=== PATIENT | female | born 1995 | race Caucasian/White ===

== ENCOUNTER 2022-04-25 08:41 | Outpatient (CLI) | payer BC, SELFPAY ==
[2022-04-25 10:09] LABS: Cholesterol* 197 mg/dL (90-199)
[2022-04-25 10:10] LABS: HDL Cholesterol* 59 mg/dL (>=50); LDL Cholesterol Calculated 125 mg/dL (<100); Triglycerides* 63 mg/dL (40-149)
== END 2022-04-25 08:42 | disposition home or self-care (01) ==
PROVIDERS: PCP Family Medicine; Visit Provider Physician Assistant
DX: Z01.419 Encounter for gynecological examination (general) (routine) without abnormal findings (principal); Z12.4 Encounter for screening for malignant neoplasm of cervix; Z11.3 Encounter for screening for infections with a predominantly sexual mode of transmission; Z13.6 Encounter for screening for cardiovascular disorders
CPT/HCPCS: 80061; 88174

== ENCOUNTER 2023-05-11 12:25 | Outpatient (CLI) | payer OTHER, SELFPAY | END 2023-05-11 12:26 | disposition home or self-care (01) | PROVIDERS: PCP Family Medicine; Visit Provider Physician Assistant | DX: R19.7 Diarrhea, unspecified (principal) | CPT/HCPCS: 87045; 87046; 87077; 87427; 87493; 87505 ==

== ENCOUNTER 2023-10-06 08:36 | Emergency (ER) | payer BC, SELFPAY ==
[2023-10-06 08:51] VITALS: BP 114/78; PULSE 101; RESP 16; TEMP 36.3; O2SAT 96; BMI 30.7
--- NOTE | 2023-10-06 08:59 | ED.NAVMDI ---
HPI - Nausea/Vomiting/Diarrhea General Time Seen by Provider: 08:59 Date Seen: 10/06/23 Chief complaint: Nausea/Vomiting Stated complaint: diarrhea,vomiting Time Seen by Provider: 10/06/23 08:45 Source: patient and RN notes reviewed Mode of arrival: ambulatory Limitations: no limitations History of Present Illness HPI Narrative: This 28-year-old female is coming in with nausea vomiting and diarrhea. She awoke abruptly at 4:00 a.m. and had sudden onset of symptoms. She really has not looked at the vomiting or diarrhea to see if there is any blood. She states she has just had continuous vomiting and diarrhea, can not really quantify how many times this is happen. She can not keep anything in, is already feeling dehydrated. She is not even sure if she has had a fever, she just feels miserable. She did have Campylobacter in summer of 2022 associated with travel to [place]. 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 The whole family did go out to eat [employer] night, no one else is sick. We did discuss the possibility that sometimes illness can be picked up off of surfaces and not just necessarily food-borne. She has no respiratory symptoms with this. Patient notes that she has been tapering off Lexapro, has been doing the recommended taper however. She did just bring that up wondering if it could be the causative etiology. Reviewed with her that I am doubtful that cessation of this medicine via a taper would cause such sudden on set of drastic symptoms. It is more likely an infectious source. MD elicited complaint: nausea, vomiting and diarrhea Related Data Home Medications Medication Instructions Recorded Confirmed cholecalciferol (vitamin D3) 25 1,000 unit PO DAILY 04/25/22 05/11/23 mcg (1,000 unit) tablet levonorgestrel 14 mcg/24 hrs (3 13.5 intrauterine ONCE 04/25/22 05/11/23 yrs) 13.5 mg intrauterine device spironolactone 50 mg tablet 50 mg PO DAILY 04/07/23 10/06/23 Previous Rx's Medication Instructions Recorded escitalopram oxalate 10 mg tablet 10 mg PO QDAY #90 tabs 04/07/23 escitalopram oxalate 5 mg tablet 5 mg PO QDAY #90 tabs 04/07/23 lorazepam 0.5 mg tablet 0.5 mg PO DAILY PRN anxiety #10 04/07/23 tabs ondansetron 4 mg disintegrating 4 mg PO Q6H PRN nausea and 10/06/23 tablet vomiting #20 tabs Allergies Allergy/AdvReac Type Severity Reaction Status Date / Time No Known Drug Allergies Allergy Verified 05/11/23 12:10 Review of Systems Status of ROS: Reports: 6 or more systems reviewed and unremarkable except as noted in History and below [facility] History Campylobacter diarrhea ?A04.5 - Campylobacter enteritis (ICD-10) Diarrhea ?R19.7 - Diarrhea, unspecified (ICD-10) JOVANNY (generalized anxiety disorder) ?F41.1 - Generalized anxiety disorder (ICD-10) Skin tag of anus ?K64.4 - Residual hemorrhoidal skin tags (ICD-10) Positive antinuclear antibody ?R76.8 - Other specified abnormal immunological findings in serum (ICD-10) Pityriasis rosea (10/24/21) ?L42 - Pityriasis rosea (ICD-10) Hidradenitis suppurativa ?L73.2 - Hidradenitis suppurativa (ICD-10) Attention deficit disorder of adult with hyperactivity ?F90.9 - Attention-deficit hyperactivity disorder, unspecified type (ICD-10) Anal fistula (11/2019) ?K60.3 - Anal fistula (ICD-10) Alopecia (2020) ?L65.9 - Nonscarring hair loss, unspecified (ICD-10) Allergic rhinitis ?J30.9 - Allergic rhinitis, unspecified (ICD-10) Surgical History Anal fissure and fistula ?K60.2 - Anal fissure, unspecified (ICD-10) ?K60.3 - Anal fistula (ICD-10) History of third molar tooth extraction (2013) ?K08.409 - Partial loss of teeth, unspecified cause, unspecified class (ICD-10) History of repair of fracture of facial bone (2011) ?Z98.890 - Other specified postprocedural states (ICD-10) ?Z87.81 - Personal history of (healed) traumatic fracture (ICD-10) Family History Maternal Grandmother Rheumatoid arthritis Paternal Grandmother Rheumatoid arthritis Family/Other Melanoma Autoimmune disorder 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 Exercises 4 times a week. Denies tobacco or E cigarette use. Two alcoholic drinks per week. Denies recreational drug use. No concerns for safety or abuse. Smoking Status: Never smoker How often do you have a drink containing alcohol: 2-3 times a week How many standard drinks containing alcohol do you have on a typical day: 1 or 2 How often do you have six or more drinks on one occasion: Never AUDIT-C Alcohol total score: 3 Non-prescribed substance use: denies use Little interest or pleasure in doing things: not at all Feeling down, depressed, or hopeless: not at all Exam Const: Vital Signs, click to edit/add: Vital Signs - 24 hr 10/06/23 08:51 10/06/23 09:20 10/06/23 10:29 Temperature 97.4 F L 97.1 F L Pulse Rate [Pulse Oximeter] 101 H 87 Respiratory Rate 16 16 Blood Pressure [Ri ght Upper Arm] 114/78 105/65 Pulse Oximetry 96 99 100 Oxygen Delivery Me thod Room Air Room Air This 28-year-old female is resting in exam room 3. She looks like she does not feel well but is alert, interactive, no apparent distress. Sclera clear, face atraumatic, tongue still has listening mucosa, no dry oral mucosa is membranes, lips look normal. Lungs are clear, no tachypnea. CV slightly fast but regular, no murmur, normal S1-S2, no S3-S4. Abdomen is soft, nontender, nondistended, no organomegaly, bowel sounds are present but maybe hypoactive. Documenting provider has reviewed patient's vital signs: yes Course Course ED Course: She very likely has a viral gastroenteritis. Will initiate an IV, start a L of IV fluids, 4 mg IV Zofran. We discussed expectations with viral gastroenteritis. We certainly can help with symptom management but cannot fix this. Will do a basic CBC electrolytes, make sure his she has no electrolyte abnormality or any labs or concerning. Would consider imaging if she has a change in clinical course here or there is anything significant with the labs. Otherwise probable discharge to home for ongoing outpatient observation, would send a prescription for Zofran for her. Reevaluation(s) Time of Reevaluation #1: 10:45 Reevaluation #1: Reviewed with patient that her labs are looking stable. She has completed a L of normal saline. Does feel like she could use another L, has not urinated. She does not have Zofran on hand. We discussed the assumption that this is a viral gastroenteritis. She certainly is not exhibiting any pain that would warrant any imaging. We discussed conservative management, will order 2 L of fluids here, discharged home after that. I will send in a prescription for Zofran. If she is not improving over the next couple days, has worsening or other concerns, would recommend re-evaluation at that point. Vital Signs Vital signs: Initial Vital Signs Temperature 97.4 F L 10/06/23 08:51 Temperature Source Temporal Artery Scan 10/06/23 08:51 Pulse Rate 101 H 10/06/23 08:51 Respiratory Rate 16 10/06/23 08:51 Blood Pressure 114/78 10/06/23 08:51 Blood Pressure Mean 90 10/06/23 08:51 Blood Pressure Position Supine 10/06/23 08:51 Pulse Oximetry 96 10/06/23 08:51 Oxygen Delivery Method Room Air 10/06/23 08:51 Vital Signs Temperature 97.4 F L 10/06/23 08:51 Pulse Rate 101 H 10/06/23 08:51 Respiratory Rate 16 10/06/23 08:51 Blood Pressure 114/78 10/06/23 08:51 Pulse Oximetry 96 10/06/23 08:51 Oxygen Delivery Method Room Air 10/06/23 08:51 Temperature 97.1 F L 10/06/23 10:29 Pulse Rate 87 10/06/23 10:29 Respiratory Rate 16 10/06/23 10:29 Blood Pressure 105/65 10/06/23 10:29 Pulse Oximetry 100 10/06/23 10:29 Oxygen Delivery Method Room Air 10/06/23 10:29 Medications Administered Medications: Generic Name Dose Route Start Last Admin Trade Name Freq PRN Reason Stop Dose Admin Lactated Ringer's 1,000 mls @ 1,000 mls/hr 10/06/23 10:46 10/06/23 10:53 Lactated Ringers 1000 Ml IV 10/06/23 11:45 1,000 mls/hr .Q1H ONE Administration Discontinued Medications Generic Name Dose Route Start Last Admin Trade Name Karelq PRN Reason Stop Dose Admin Sodium Chloride 1,000 mls @ 1,000 mls/hr 10/06/23 09:10 10/06/23 10:53 0.9 % Sodium Chloride 1000 Ml IV 10/06/23 10:09 Infused .Q1H LULU Infusion Ondansetron HCl 4 mg 10/06/23 09:10 10/06/23 09:30 Ondansetron 2 Mg/Ml Inj IVP 10/06/23 09:11 4 mg ONCE ONE Administration MDM - Nausea/Vomiting/Diarrhea Differential Diagnosis Differential diagnosis: Likely traveler's diarrhea, food poisoning, gastroenteritis and dehydration Lab Data Attestation: I reviewed the patient's lab results. Labs: Lab Results 10/06/23 Range/Units 09:26 WBC 11.29 H (4.50-11.00) K/uL RBC 4.59 (4.00-5.20) m/uL Hgb 13.8 (12.0-16.0) gm/dL Hct 41.9 (33.0-51.0) % MCV 91 (80-100) fL MCH 30 (26-34) pg MCHC 33 (32-36) gm/dL RDW Coeff of Samra 12.4 (11.5-15.5) % Plt Count 277 (140-440) K/uL Neut % (Auto) 92.8 H (42.0-72.0) % Lymph % (Auto) 3.1 L (20-44) % Grundy % (Auto) 3.9 (0.0-11.0) % Eos % (Auto) 0.1 (0.0-7.0) % Baso % (Auto) 0.0 (0.0-3.0) % Neut # (Auto) 10.50 H (1.7-7.0) K/uL Lymph # (Auto) 0.30 L (0.90-2.90) K/uL Grundy # (Auto) 0.40 (0.00-0.90) K/UL Eos # (Auto) 0.00 (0.00-0.50) K/uL Baso # (Auto) 0.00 (0.00-0.30) K/uL Abs Immat Gran (auto) 0.00 (0.00-0.30) K/uL Imm/Tot Granulo (auto) 0.1 % Sodium 140 (135-149) mmol/L Potassium 4.4 (3.6-5.1) mmol/L Chloride 105 (96-114) mmol/L Carbon Dioxide 23 (20-32) mmol/L Anion Gap 12 (7-15) mEq/L BUN 17 (5-24) mg/dL Creatinine 0.7 (0.5-1.5) mg/dL Estimated Creat Clear 114.01 Estimated GFR 122 ml/min Glucose 118 H (60-115) mg/dL Calcium 9.4 (8.4-10.6) mg/dL Discharge Plan Discharge Clinical Impression: Gastroenteritis and colitis, viral Patient Disposition: Home, Self-Care Condition: Stable Instructions: Gastroenteritis (ED), Nutrition Tips for Relief of Diarrhea (ED) Additional Instructions: Can use Zofran to help stop nausea/vomiting so that you can taken sips of liquids. Recommend small frequent sips of clear liquids every 5-10 minutes while awake to help keep hydrated and not overload your stomach. Follow the handout for nutrition recommendations with diarrhea. As your nausea improves, can advance diet with the help of this handout as tolerated. If you are not improving over the next few days, have worsening or concerns at any point, do recommend re-evaluation. I typically do not recommend antidiarrheals in the setting of an infectious diarrhea in the initial portion of the illness. Activity Level: Activity as Tolerated Prescriptions: New ondansetron 4 mg tablet,disintegrating 4 mg PO Q6H PRN (Reason: nausea and vomiting) Qty: 20 0RF No Action cholecalciferol (vitamin D3) 25 mcg (1,000 unit) tablet 1,000 unit PO DAILY levonorgestrel 14 mcg/24 hrs (3 yrs) 13.5 mg intrauterine device 13.5 intrauterine ONCE spironolactone 50 mg tablet 50 mg PO DAILY escitalopram oxalate 5 mg tablet 5 mg PO QDAY Qty: 90 1RF escitalopram oxalate 10 mg tablet 10 mg PO QDAY Qty: 90 1RF lorazepam 0.5 mg tablet 0.5 mg PO DAILY PRN (Reason: anxiety) Qty: 10 0RF Follow Up/Referrals: Yuniel Barbosa MD [Primary Care Provider] - Stand Alone Forms: MyHealth Info Instructions Critical Care Time Critical Care Time Critical Care Time: No
[2023-10-06 09:20] VITALS: O2SAT 99
[2023-10-06] MEDS: 0.9 % SODIUM CHLORIDE 1000 ml 1,000 ML IV (09:30)
[2023-10-06] MEDS: ONDANSETRON 2 MG/ML inj 4 MG IVP (09:30)
[2023-10-06 09:34] LABS: Eosinophils Percent Auto 0.1 % (0.0-7.0); Hematocrit 41.9 % (33.0-51.0); Hemoglobin* 13.8 gm/dL (12.0-16.0); Immature Granulocytes Pct Auto 0.1 %; Lymphocytes Percent Auto 3.1 % (20-44); Mean Corpuscular HGB Conc 33 gm/dL (32-36); Mean Corpuscular Hemoglobin 30 pg (26-34); Mean Corpuscular Volume 91 fL (80-100); Monocytes Percent Auto 3.9 % (0.0-11.0); Neutrophils Percent Auto 92.8 % (42.0-72.0); Platelet Count* 277 K/uL (140-440); RDW Coefficient of Variation % 12.4 % (11.5-15.5); Red Blood Count 4.59 m/uL (4.00-5.20); White Blood Count* 11.29 K/uL (4.50-11.00)
[2023-10-06 09:35] LABS: Slide Review Reflex No
[2023-10-06 09:46] LABS: Chloride* 105 mmol/L (96-114); Potassium* 4.4 mmol/L (3.6-5.1); Sodium* 140 mmol/L (135-149)
[2023-10-06 09:49] LABS: Anion Gap 12 mEq/L (7-15); Blood Urea Nitrogen* 17 mg/dL (5-24); Calcium* 9.4 mg/dL (8.4-10.6); Carbon Dioxide* 23 mmol/L (20-32); Creatinine* 0.7 mg/dL (0.5-1.5); Est. Creatinine Clearance* 114.01; Estimated Glomerular Filt Rate 122 ml/min; Glucose* 118 mg/dL (60-115)
[2023-10-06 10:29] VITALS: BP 105/65; PULSE 87; RESP 16; TEMP 36.2; O2SAT 100
[2023-10-06] MEDS: LACTATED RINGERS 1000 ML 1,000 ML IV (10:53)
== END 2023-10-06 11:32 | disposition home or self-care (01) ==
PROVIDERS: Emergency Provider Family Medicine; PCP Family Medicine
DX: A08.4 Viral intestinal infection, unspecified (principal)
CPT/HCPCS: 36415; 80048; 85025; 94761; 96361; 96374; 99284; J2405; J7030; J7120

== ENCOUNTER 2025-09-23 08:50 | Emergency (ER) | payer OTHER, SELFPAY ==
--- OUTSIDE RECORDS SUMMARY | 2025-09-23 08:54 | XMS_ITS | Clinical Summary ---
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 Phone [facility]- Primary Care Provider Allergies No known active allergies Medications MedicationSigDispense QuantityRefillsLast FilledStart DateEnd DateStatus spironolactone (ALDACTONE) 50 MG tablet Take 50 mg by mouth dailyActive Lisdexamfetamine Dimesylate 20 MG CHEW Take 20 mg by mouth daily VyvanaseActive Vitamin D3 (CHOLECALCIFEROL) 25 mcg (1000 units) tablet Take by mouth daily pls verify strength of pillActive ascorbic acid (VITAMIN C) 500 MG CPCR CR capsule Take 500 mg by mouth dailyActive zinc sulfate (ZINCATE) 220 (50 Zn) MG capsule Take 220 mg by mouth dailyActive levonorgestrel (CHAN) 13.5 MG IUD 1 each by Intrauterine route onceActive minoxidil (ROGAINE) 2 % external solution Apply topically dailyActive Active Problems ProblemNoted DateDiagnosed DateZygoma bkogajxk33/28/2012 Social History Tobacco UseTypesPacks/DayYears UsedDateSmoking Tobacco: NeverSmokeless Tobacco: NeverAlcohol UseStandard Drinks/WeekCommentsYes0 (1 standard drink = 0.6 oz pure alcohol)occasionallyAdolescent EducationAnswerDate RecordedGetting School Help NeededNot on file3CommentsNoSex and Gender InformationValueDate RecordedSex Assigned at BirthNot on fileLegal GktGzqxgg54/04/2012 5:18 AM [employer] Gender IdentityNot on fileSexual OrientationNot on file Last Filed Vital Signs Vital SignReadingTime TakenCommentsBlood Noclmmhg973/80112/04/2020 4:35 PM [employer] Hdqwy391610/03/2021 4:00 PM VMYAbultvdekua71.3 ??C (97.3 ??F)10/03/2021 3:04 PM CSTRespiratory Chtq075712/04/2020 4:35 PM CSTOxygen Newhcyhypz882%10/03/2021 4:35 PM CSTInhaled Oxygen Concentration--Qjqyhg22 kg (189 lb 8 oz)10/03/2021 11:22 AM PLJJmvptj219.6 cm (5' 6)10/03/2021 11:22 AM CSTBody Mass Index30.5910/03/2021 11:22 AM [employer] Plan of Treatment Not on file Medical Devices ImplantedTypeAreaManufacturerDevice IdentifierShelf Expiration DateModel / Serial / LotAlloderm Select 2x4cm Thick Implanted:Qty: 8 on 10/03/2021 [facility]: [id number] / / [id number] [place] [address] Care Teams Team MemberRelationshipSpecialtyStart Date [facility]- [address] [place] [address] PCP - Nutmbdu51/9/21
--- OUTSIDE RECORDS SUMMARY | 2025-09-23 08:54 | XMS_ITS | Data Portability ---
Author Organization [place] - [facility], Telehealth Address [address] [address] Assessment No assessment recorded. Plan of Treatment Reminders Order DateSubmit DateProviderLast Modified ByOrganization DetailsLast Modified TimeDetailsAppointmentsNone recorded.LabNone recorded.ReferralNone recorded. Proceduresintralesional injection (PROC)/[id number] [facility], [address] [facility] [facility], [place], [address], 33/ 11:22:50SurgeriesNone recorded.ImagingNone recorded.Medication Ordersdoxycycline hyclate 100 mg vzmedg06/ [facility][id number], [address], [facility] [address], [place], [id number], 28/ 12:39:21amoxicillin 875 mg tablet /[facility] [id number], [address] [place], [address], 06/09/2023 18:22:30 Patient TargetsNo targets recorded. Patient Instructions Encounter Date Encounter Id Patient Instructions Last Modified By Organization Details Last Modified Time 03/26/2023 [id number] Stop amoxicillin . Meds as directed. Tylenol every 6 hours, ibuprofen every 8 hours as needed for pain. Warm compresses to area. Do not pick, sqeeze lesions. Side effects of meds may include but not limited to GI upset, headache, rash, dizziness, increased sun sensitivity, worsening of condition, atrophy of skin/underlying adipose tissue, ineffectiveness. Seek medical attention for worsening, lack of improvement in 3-5 days or any other concerns [email or web address] Not available 03/26/2023 12:44:55 Reason for Referral None Reported. Medical Equipment None Reported. Allergies No known drug allergies Medications Name Sig Start Date Stop Date Status Note LastModified by Organization Details LastModified Time amoxicillin 875 mg tablet Take 1 tablet every 12 hours by oral route for 7 days. 03/23/2023 activeNot AvailableNot AvailableNot Availabledoxycycline hyclate 100 mg tablet Take 1 tablet twice a day by oral route for 10 days.03/26/2023ctiveNot AvailableNot AvailableNot AvailablespironolactoneactiveNot AvailableNot AvailableNot AvailableLexaproactiveNot AvailableNot AvailableNot Available Vitals Date Recorded Body height Body mass index (BMI) Body weight Heart rate Respiratory rate Oxygen saturation Body temperature Systolic And Diastolic Provider Name and Address Organization Details Last Updated DateTime 3 167.64 cm 30.7 kg/m2 84356.5 5 g 88 /min 16 /min 99 % 97 [degF] 116/65 mm[Hg] Pam Peña [facility] 18:14:41 Date Recorded Body height Body mass index (BMI) Body weight Body temperature Oxygen saturation Respiratory rate Heart rate Systolic And Diastolic Provider Name and Address Organization Details Last Updated DateTime 3 167.64 cm 30.7 kg/m2 83050.5 5 g 95.8 [degF] 98 % 16 /min 82 /min 110/65 mm[Hg] Pam Peña [facility] 3 12:16:23 Social History Question Answer Notes LastModified by Organization D etails LastModified Time Tobacco Smoking Status Never [facility]/23/2023 18:17:18What Is Your Level Of Caffeine Consumption?Zptklogerjdbe10Cwcykcpxqxk not apkbqkxwv82/12/2023 Sex: Unknown Functional Status Question Answer Note LastModified by Organization D etails LastModified Time Do you use any illicit or recreational drugs? No hrlws10Awymikhdbua not rsmjseyii98/12/2023o you or have you ever used any other forms of tobacco or nicotine?Kssrxhp22Gutanlaezvb not rzmpisnnz62/12/2023What is your level of alcohol consumption?Dwfzkhgfkvkwbky26Kunmtlbtghh not available 03/23/2023 Mental Status None recorded. Family History Nothing Reported. Medical History No medical history recorded. Gynecological HistoryNo gynecological history recorded. Obstetrics History GPAL:G 0 P 0 0 0 0 Past Encounters Encounter ID Performer Location Encounter Start Date Encounter Closed Date Diagnosis/Indication Diagnosis SNOMED-CT Code Diagnosis ICD10 Code Diagnosis IMO Codes Diagnosis Note [id number] ESTIVEN LAUGHLIN [facility] [address] [place] [id number] 03/23/2023 17:22:10 03/23/2023 18:23:47 Acute left otitis media 045185218 H66.92 Pt here with left AOM. Amoxicillin prescribed. Recommended tylenol/motrin for pain and follow up ifno improvement in 2 days.[id number] Smith [facility] [address] [address] 03/26/2023 11:25:42003/26/2023 12:34:51Infection of skin and/or subcutaneous bmbean17572082D47.9 Hidradenitis kjnmygdsnkg37542559S28.2 Health Concerns Section Related Observation LastModified by Organization Detai ls LastModified Time None Recorded Concern Status LastModified by Organization Details LastModified Time None Recorded Advance Directives Directive None Recorded Payers Insurance Date Sequence Insurance Name Policy Number Policy Waldron Covered Member ID Waldron Member ID Guarantor Name 03/23/2023 1 [facility] [id number] Viktoria Aragon [id number] [facility] [id number][id number] [id number] [facility]*SELF PAY*Viktoria Aragon Notes Date Note Type Note Provider Name and Address Orga nization Details Recorded Time 03/23/2023 text/html EaracheReported by PatientHPIFor context, patient reportsswimming/water in earbut reportsno sick contactsandno head trauma. For location, patient reportsleft. For severity, patient reportsmoderate. For modifying factors, patient reportsdoes not hurt to lie on, or pull on earanddoes not hurt to chew. For associated symptoms, patient reportsno hearing loss,no discharge from the ears,no nose/sinus problems,no popping noise in the ears,no ringing in the ears,no fever,ears do not feel full,no swelling,no redness,no itching (pruritus),no ear bleeding, andno vertigo(feels like water is in the ear). For duration, (started a few days ago and is getting worse).Pt notes she does get ear infections frequentlyROS as noted in the HPI JENA delaney, [facility]03/23/2023 18:25:0903/26/2023text/html Rash/Skin Lesion Urgent CareReported by PatientHPIFor quality, patient reports painful,red, andswollen. For context, patient reportsrecent outdoor activitybut reportsno new detergents or skin products,no one else with similar rash, andnot scratching(has hidradenitis suppurativa, flare with stress, change in diet, wearing wet bathing suits, friction to area.). For location, patient reports thighs (right proximal medial thigh). For severity, patient reportsworsening. For onset/timing, patient reportsabrupt onset. For duration, patient reports2 days. For aggravating factors, patient reportsnothing makes it worse. For associated symptoms, patient reportsno feverandno chills. For treatment history, (pt on spirololactone for treatment of the condition but not treatment of this flare).ROS as noted in the HPISYEDA Arana [address] [facility] [address] [place], [address], [facility]03/26/2023 13:27:40 OBGyn Episode No OBEpisode recorded.
--- OUTSIDE RECORDS SUMMARY | 2025-09-23 08:54 | XMS_ITS | Clinical Summary ---
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 Name Role Phone Yuniel Barbosa MD Primary Care Provider + Allergies No known active allergies Medications MedicationSigDispense QuantityRefillsLast FilledStart DateEnd DateStatus escitalopram oxalate (LEXAPRO) 5 MG tablet 3Active alprazolam (XANAX) 0.25 MG tablet ALPRAZOLAM 0.25 MG TABSActive cholecalciferol, vitamin D3, 25 mcg (1,000 unit) tablet Take by mouthActive hydrOXYzine (ATARAX) 25 MG tablet TAKE 1 TO 2 TABLETS BY MOUTH TWICE DAILY CIDXAS1904/29/2022ctive levonorgestreL (Bianka) 14 mcg/24 hrs (3 yrs) 13.5 mg IUD 1 each by intrauterine routeActive minoxidiL (ROGAINE) 2 % external solution Apply topicallyActive mupirocin (BACTROBAN) 2 % ointment 05/07/2020Active spironolactone (ALDACTONE) 50 MG tablet Take 1 tablet (50 mg total) by mouth01/30/2020Active tazarotene 0.1 % foam 03/01/2018Active triamcinolone (KENALOG) 0.1 % ointment APPLY A THIN LAYER TO LEFT BUTTOCK BID PRN03/08/2020Active zinc sulfate (ZINCATE) 50 mg zinc (220 mg) capsule Take 1 capsule (220 mg total) by mouthActive b complex vitamins tablet Take 1 tablet by mouth dailyActive cholecalciferol, vitamin D3, (cholecalciferol) 10 mcg (400 unit) tab Take by mouthActive Social History Tobacco UseTypesPacks/DayYears UsedDateSmoking Tobacco: NeverSmokeless Tobacco: Never Tobacco Cessation:Counseling Given: Yes CommentsNoSex and Gender InformationValueDate RecordedSex Assigned at BirthNot on fileLegal LhdDcatrx91/20/2023 10:50 AM ESTGender IdentityNot on file Sexual OrientationNot on file Last Filed Vital Signs Vital SignReadingTime TakenCommentsBlood Bnuhmdya666/70011/01/2022 12:05 PM EST Gtndy702611/01/2022 12:05 PM UXNKuvcesbfmyp59.9 ??C (98.5 ??F)11/01/2022 12:05 PM ESTRespiratory Ucbg121511/01/2022 12:05 PM ESTOxygen Qejrmxxydn08%11/01/2022 12:05 PM ESTInhaled Oxygen Concentration--Kjwfjc93.5 kg (195 lb)11/01/2022 12:05 PM DZSBolfyt350.6 cm (5' 6)11/01/2022 12:05 PM ESTBody Mass Index31.47011/01/2022 12:05 PM EST Plan of Treatment Health MaintenanceDue DateLast DoneCommentsDepression: Screening Annually using PHQ-2/9 in Adults 18 yrs or above (or HM Modifier)([facility])2015Hepatitis C Virus Infection in Adolescents and Adults: Screening (or Modifier) ([facility]) 2015SDOH Screening Reminder: Annually for all adults ([facility])2015 Tobacco Smoking Cessation: in Adults excluding Women: Behavioral and Pharmacotherapy Interventions ([facility])2015Cervical Cancer Screening: Pap every 3 yrs pts age 21-65002/13/2018Cervical Cancer: hrHPV alone or with cotesting Pap for Pts 30-65yrs screening every 5yrs ([facility])2018Cervical Cancer Screenin-65 yrs of age (or Modifier)04/26/2022ervical Cancer: Pap Screening with Modifier timing ([facility])Flu Vaccination: Yearly for ages 18mos through 64 years (or Modifier)([facility])5COVID-19 Vaccine Screening: Initial Series and Booster Status ([facility]) ( - 2024-26 season) 2025DTaP/Tdap/Td Vaccines ([facility]) (3 - Td or Tdap), 06/06/2002Zoster/Shingles Vaccine Series Screening: Adults aged 18+ yrs (or HM Modifiers)([facility]) (1 of 2)Pneumococcal Vaccination Screening: Pts 0-19 & 19-49 yrs of age ([facility])Aged OutNo longer eligible based on patient's age to complete this topic Medical Devices Not on file Care Teams Team MemberRelationshipSpecialtyStart DateEnd Date Yuniel Barbosa MD PCP - GeneralFamily Medicine11/01/22
--- OUTSIDE RECORDS SUMMARY | 2025-09-23 08:54 | XMS_ITS | CCD ---
Author Name Interface, [id number] lity Address [address] [place] [id number] [facility] Address [facility] [address] [address] Reason for Visit Social History Date Name Value 06/10/2025 Sex Female
--- OUTSIDE RECORDS SUMMARY | 2025-09-23 08:54 | XMS_ITS | Data Portability ---
Author Organization [place] - .[facility], [facility] Address [address] [place] [address] Assessment No assessment recorded. Plan of Treatment Reminders Order DateSubmit DateProviderLast Modified ByOrganization DetailsLast Modified TimeDetailsAppointmentsNone recorded.Labrapid SARS CoV 2 Ag, QL IA, respiratory fbzvprha63/wang46[facility]_ [facility], [place], [address], 07/09/2022 14:08:59rapid flu (A+B)02/17/2022 02/17/2022tshelley7[facility]_ [facility], [address] [place], [address], 75 15:34:17rapid SARS CoV 2 Ag, QL IA, respiratory plotlkyl10/06/2022tshelley7[facility]_ [facility], [address] [place], [address], 53 15:34:17SARS CoV 2 RNA (COVID-19), QL, line tender flakeboard-PCR, respiratory struhpgk44/06/20221762ejggjger7[facility], [address] [place] [address], [address], 35/08/2022 15:34:17ReferralNone recorded.ProceduresNone recorded.SurgeriesNone recorded.ImagingNone recorded. Medication OrdersVentolin HFA 90 mcg/actuation aerosol spqpetk3502/20/2022 02/20/2022[id number], [address] [place], [address], 96/ 03:30:55prednisone 10 mg odrwvi36 [id number], [address] [place], [address], 88/08/2022 09:44:13Augmentin 875 mg-125 mg urpthl29 [id number], [address] [place], [address], 95/08/2022 09:44:15 Patient TargetsNo targets recorded. Patient Instructions Encounter Date Encounter Id Patient Instructions Last Modified By Organization Details Last Modified Time 02/17/2022 [id number] A healthy lifestyle: care instructions [email or web address] Not available 02/19/2022 15:34:17 Thank you for visiting [employer]. There are two ways to view your lab results: : 1. The [email or web address] alexia is available to all patients 18 and older in the Alexia Store and [employer]. First-time alexia users will need to create an account; please note you???ll need to select a login and password for the alexia versus just using your patient portal login credentials. Your lab resultswill be posted to the [email or web address] alexia as soon as they???re available. 2. Via email , as soon as lab results are available. If you don???t receive an email within the estimated time frame, give our Aftercare team a call at [phone]. Test Name: SARS-CoV-2 rapid ag (COVID-19); Result: NEGATIVE Your test today for COVID-19 infection was NEGATIVE. The next steps in your care depend on your whether you are having symptoms or had an exposure to Covid-19: NOTE: an EXPOSURE is defined as spending more than 10 minutes (within a 24 period) within an enclosed space with an individual who tested positive for Covid-19 If NO EXPOSURE to COVID-19: If you are ASYMPTOMATIC and NO KNOWN EXPOSURE: You are cleared to go back to work or school since you have no symptoms suggestive of COVID-19, have not had a high risk exposure to a person known to have COVID-19, and your Rapid Covid Test result is negative. If you have SYMPTOMS with NO KNOWN EXPOSURE to COVID-19: Your medical provider may have sent a second test to an outside lab to confirm that today s test was truly negative. The results of this second test (PCR technique) will be published to your [facility] patient portal ([email or web address]) as soon as they are available (3- 5 days on average). For now, we ask that you go homeunder strict QUARANTINE, monitor for any worsening symptoms and return for re-evaluation if your symptoms become severe. If HIGH-RISK EXPOSURE: FULLY VACCINATED: If you are fully vaccinated and boosted (with the booster at least 2 weeks before the first date of exposure) or you are not yet eligiblefor a booster, NO QUARANTINE IS REQUIRED. You should wear a well-fitting mask while aroundothers for 10 days after the last date of exposure. NOT FULLY VACCINATED (including vaccinated and eligible for a booster but not yet boosted): You should QUARANTINE for 5 DAYS, then wear a well-fitting mask while around others for an additional 5 days. It is recommended that you TEST at DAY 5 if possible (either PCR or Rapid Antigen) If you DEVELOP SYMPTOMS: QUARANTINE and SEEK TESTING. In this situation, quarantine would end when the test is negative. If testing is not done, isolate according to the guidance above (Vaccinated vs NOT-Vaccinated). Be Safe MONITOR YOUR SYMPTOMS : If at any point your symptoms become worse or severe such as fever that will not improve with medicine, shortness of breath, chest pain or discomfort, abdominal pain, inability to tolerate eating and drinking, please returnto [facility] or go to the closest Emergency Room. QUARANTINE INFO : If you were asked to quarantine yourself, please stay in your own part of the house away from everyone else, using your own bedroom and bathroom, if possible. If you need to be in a common area ensure that both you and anyone else around you is wearing a mask.You will be considered free of contagious COVID-19 10 days after your symptoms began ??? if your symptoms have significantly improved and you have not had a fever for at least 24 hours (without using fever reducing medications like acetaminophen or ibuprofen). Please continue to follow all personal safety practices when outside the home, including (a) wearing a nose and mouth covering at all times when around people outside of your household, (b) social distancing, (c) hand hygiene, and (d) avoidance of contact with people with known or possible COVID-19.xzrevz5Vux znfeaccmj63/09/2022 14:15:45 [id number] healthy lifestyle: care lwaeoqnnakqwwltvo67Tkf available 02/20/2022 14:08:59Thank you for visiting [facility]. There are two ways to view your lab results: : 1. The [email or web address] alexia is available to all patients 18 and older in the Alexia Store and [employer]. First-time alexia users will need to create an account; please note you???ll need to select a login and password for the alexia versus just using your patient portal login credentials. Your lab resultswill be posted to the [email or web address] alexia as soon as they???re available. 2. Via email , as soon as lab results are available. If you don???t receive an email within the estimated time frame, give our Aftercare team a call at [phone]. Test Name: SARS-CoV-2 rapid ag (COVID-19); Result: POSITIVE ISOLATE for 5 days from the onset of symptom. (If you are asymptomatic, you shouldIsolate for 5 days from the day of the positive test result.) AFTER 5 days, if your respiratory symptoms (ie. cough, runny nose, etc) are improving AND you are fever-free for 24 hours (without using fever reducing medications like acetaminophen or ibuprofen), isolation ends and you should wear a well fitting mask while around others for an additional 5 days . If you are UNABLE TO WEAR a well-fitting mask for 5 days: you should continue ISOLATION for 5 more days (total = 10 days isolation) If you are IMMUNOCOMPROMISED (moderately to severely): you should continue ISOLATION for 5 more days (total = 10 days isolation) HEALTHCARE WORKERS: Vaccinated Healthcare Workers who test POSITIVE for COVID-19 may return to work 5 days after onset of symptoms (Asymptomatic HC workers with a positive testmay use 5 days from date of test) provided their symptoms are improving and they???re fever free for >24 hours. Consult your employer s EHS team. Unvaccinated Healthcare Workers who test POSITIVE for COVID-19 may return to work 7 days after onset of symptoms (Asymptomatic HC workers with a positive test may use 7 days from date of test) provided their symptoms are improving and they re fever free for >24 hours. Consult your employer [facility] team Consult your employer???s EHS team: Your health care institution may vary on quarantine requirements; they may also require testing prior to your returning to work. Be Safe MONITOR YOUR SYMPTOMS: If at any point your symptoms become worse or severe such as fever that will not improve withmedicine, shortness of breath, chest pain or discomfort, abdominal pain, inability to tolerate eating and drinking, please return to [facility] or go to the closest Emergency Room. QUARANTINE INFO: If you were asked to quarantine yourself, please stay in your own part of the house away from everyone else, using your own bedroom and bathroom, if possible. If you need to be in a common area ensure that both you and anyone else around you is wearing a mask.You will be consideredfree of contagious COVID-19 10 days after your symptoms began ??? if your symptoms have significantly improved and you have not had a fever for at least 24 hours (without using fever reducing medications like acetaminophen or ibuprofen). REPEAT TESTING: It is generally NOT required (or even recommended) to get repeat testing for COVID-19 until at least 90 days after receiving a positive test result. (Consult your employer/school for their specific requirements). If you are age 18 to 65 and have recently tested positive for SARS-CoV-19, you can help in the fight against COVID-19! Antibodies from your blood can be given to patientswith COVID-19 to help save lives. Sign up using the link below. If you are eligible, a member of our team will contact you to schedule an appointment. Donors are compensated at each donation! Please visit [employer] and complete the screening form to see if you are eligible for donation Please continue to follow all personal safety practices when outside the home, including (a) wearing a nose and mouth covering at all times when around people outside of your household, (b) social distancing, (c) hand hygiene, and (d) avoidance of contact with people with known or possible COVID-19. Cough Your Care Instructions: A cough is your body's response to something that bothers your throat or airways. Many things can cause a cough. You might cough because of a cold or the flu, bronchitis, or asthma. Smoking, postnasal drip, allergies, and stomach acid that backs up into your throat also can cause coughs. A cough is a symptom, not a disease. Most coughs stop when the cause, such as a cold, goes away. You can take a few steps at home to cough less and feel better. Follow-up care is a danielson part of your treatment and safety. Be sure to make and go to all appointments, and call your doctor if you are having problems. It's also a good idea to know your test resultsand keep a list of the medicines you take. How can you care for yourself at home? Drink lots of water and other fluids. This helps thin the mucus and soothes a dry or sore throat. Honey or lemon juice in hot water or tea may ease a dry cough. Take cough medicine as directed by your doctor. Prop up your head on pillows to help you breathe and ease a dry cough. Try cough drops to soothe a dry or sore throat. Cough drops don't stop a cough. Medicine-flavored cough drops are no better than candy-flavored drops or hard candy. Do not smoke. Avoid secondhand smoke. If you need help quitting, talk to your doctor about stop-smoking programs and medicines. These can increase your chances of quitting for good. When should you call for help? Call 911 anytime you think you may need emergency care. For example, call if: You have severe trouble breathing. Call your doctor now or seek immediate medical care if: You cough up blood. You have new or worse trouble breathing. You have a new or higher fever. You have a new rash. Watch closely for changes in your health, and be sure to contact your doctor if: You cough more deeply or more often, especially if you notice more mucus or a change in the color of your mucus. You have new symptoms, such as a sore throat, an earache, or sinus pain. You do not get better as expected. Otitis Media (adult) Your Care Instructions: An ear infection may start with a cold and affect the middle ear (otitis media). It can hurt a lot.Most ear infections clear up on their own in a couple of days. Most often you will not need antibiotics. This is because many ear infections are caused by a virus. Antibiotics don''t work against a virus. Regular doses of pain medicines are the best way to reduce your fever and help you feel better. Follow-up care is a danielson part of your treatment and safety. Be sure to make and go to all appointments, and call your doctor if you are having problems. It''s also a good idea to know your test results and keep a list of the medicines you take. How can you care for yourself at home? Take pain medicines exactly as directed. If the doctor gave you a prescription medicine for pain, take it as prescribed. If you are not taking a prescription pain medicine, take an olgv-jbh-eurcjli medicine, such as acetaminophen (Tylenol), ibuprofen (Advil, Motrin), or naproxen (Aleve). Read and follow all instructions on the label. Do not take two or more pain medicines at the same time unless the doctor told you to. Many pain medicines have acetaminophen, which is Tylenol. Too much acetaminophen (Tylenol) can be harmful. Plan to take a full dose of pain reliever before bedtime. Getting enough sleep will help you get better. Try a warm, moist washcloth on the ear. It may help relieve pain. If your doctor prescribed antibiotics, take them as directed. Do not stop taking them just because you feel better. You need to take the full course of antibiotics. When should you call for help? Call your doctor now or seek immediate medical care if: You have new or increasing ear pain. You have new or increasing pus or blood draining from your ear. You have a fever with a stiff neck or a severe headache. Watch closely for changes in your health, and be sure to contact your doctor if: You have new or worse symptoms. You are not getting better after taking an antibiotic for 2 days. leyplgp5Ecf /12/2022 12:00:41 Reason for Referral None Reported. Results Created Date Observation Date Name Description Value Unit Range Abnormal Flag Note LastModifiedBy Organization Detail LastModifiedTime 02/17/2022 02/18/2022 SARS COV 2 RT-PCR sars-cov-2 RNA (co vid19) by PCR POSITIVE negativeabnormalPositive results are indicative of the presence of SARS-CoV-2 RNA; clinical correlation with patient history and other diagnostic information is necessary to determine patient infection status. Positive results do not rule out bacterial infection or co-infection with other viruses. Positive and nega tive predictive values of testing are highly dependent on prevalence. False positive test results are more likely when prevalence is moderate to low. The expected result is Negative (Not Detected). The SARS CoV-2 test is intended for the qualitative detection of nucleic acid from SARS-CoV-2 in nasopharyngeal and oropharyngeal swab samples from patients who meet COVID-19 clinical and/or epidemiological criteria. Testing methodology is Real-Time PCR (RT-PCR) using high- throughput technology. Test results must be correlated with clinical presentation and evaluated in the context of other laboratory and epidemiologic data. This test has not been Food and Drug Administration (FDA) cleared or alexia roved and has been authorized by FDA under an Emergency Use Authorization (EUA). [facility] is certified under the Clinical Laboratory Improvement Amendments of 1988 (CLIA),42 U.S.C. section 263a, to perform high complexity tests.Not Available[facility] [address] [place], [address], 002/18/2022 07:43:46 apid flu (A+B)Flu A (control pos)NEGATIVENot Available [facility] [address] [place] [address], [address], 02/17/2022 14:04:21 /2rapid flu (A+B)Flu B (control pos)NEGATIVENot Available [facility] [address] [place] [address], [address], 02/17/2022 14:04:21 2rapid SARS CoV 2 Ag, QL IA, respiratory specimenRapid COVID- 19 Antigen (Internal Control Positive)NegativeNot AvailableCmdny_ [facility] [address] [place] [address], [address], 02/17/2022 13:41:04 /apid SARS CoV 2 Ag, QL IA, respiratory specimenRapid COVID- 19 Antigen (Internal Control Positive)PositiveNot AvailableNorthern [facility] [address] [place], [address], 05/09/2022 11:38:49 Result Notes None recorded. Problems Name Problem SNOMED Code Status Onset Date Resolution Date Notes Provider Name and Address Organization Details Recorded Time Irritable bowel syndrome 90674632 Active 02/17/2022 ARIEL Lim - .[facility]02/17/2022 13:31:27Hidradenitis [id number] Odoenm5702/17/2022ARIEL Austin - .[facility]02/17/2022 13:34:39 Problem Notes None recorded. Medical Equipment None Reported. Allergies No known drug allergies Medications Name Sig Start Date Stop Date Status Note LastModified by Organization Details LastModified Time Augmentin 875 mg-125 mg tablet Take 1 ta blet twice a day by oral route for 10 days. 02/20/2022 activeNot AvailableNot AvailableNot Availableprednisone 10 mg tabletTake 1 tablet every day by oral route for 5 days.02/20/2022ctiveNot AvailableNot AvailableNot AvailableVentolin HFA 90 mcg/actuation aerosol inhalerInhale 2 puffs every 4 hours by inhalation route.02/20/2022ctiveNot AvailableNot AvailableNot AvailablespironolactoneactiveNot AvailableNot AvailableNot Available Vitals Date Recorded Body height Body mass index (BMI) Body weight Heart rate Body temperature Respiratory rate Oxygen saturation Systolic And Diastolic Provider Name and Address Organization Details Last Updated DateTime 167.64 cm 30.7 kg/m2 48982.4 8 g 88 /min 97.8 [degF] 16 /min 99 % 106/72 mm[Hg] Reena Anjel GEORGE - .[facility] 05/09/202 2 13:19:42 Date Recorded Body height Body mass index (BMI) Body weight Respiratory rate Oxygen saturation Body temperature Heart rate Systolic And Diastolic Provider Name and Address Organization Details Last Updated DateTime 167.64 cm 30.5 kg/m2 67976.9 6 g 16 /min 99 % 99.3 [degF] 125 /min 108/77 mm[Hg] Doris GEORGE - .[facility] 11:43:16 Social History Question Answer Notes LastModified by Organization D etails LastModified Time Tobacco Smoking Status Never Smoker Osmanimary SanchezMu-IsmARIEL rangel - .[facility]02/17/2022 13:32:05RISK LEVEL - SegmentationLevel 0 - Unknown/Insufficient Recent DataAPI-1111Information not dujdbggio23/17/2023 Sex: Unknown Functional Status None recorded. Mental Status None recorded. Family History Relationship Description Onset Age of this Age Resolved Age Notes LastModified by Organization Details LastModified Time Father No current problems or disabilit y gmlzdl3Vft qqdhsiviu54/09/2022 13:32:06MotherNo current problems or disability rzrszo7Gmu cntmgsfof15/09/2022 13:32:06 Medical History No medical history recorded. Gynecological HistoryNo gynecological history recorded. Obstetrics History GPAL:G 0 P 0 0 0 0 Past Encounters Encounter ID Performer Location Encounter Start Date Encounter Closed Date Diagnosis/Indication Diagnosis SNOMED-CT Code Diagnosis ICD10 Code Diagnosis IMO Codes Diagnosis Note [id number] Daniela LANDA [facility] [address] [place] [address] 02/17/2022 12:53:25 02/17/2022 14:16:04 Exposure to SARS-CoV-2 279617192 Z20.822 Viral ulldpcxx618393321O38.9 [id number] FISHER_ [facility] [address] [place] [address] 02/20/2022 11:24:39002/20/2022 12:00:05Exposure to DZUG-KqR-3877432458V61.822 History of IPBK-CqM-[id number] COVID-31875544954X11.1 Otitis texzk72991237A37.93 Fyash13243037V97.9 Health Concerns Section Related Observation LastModified by Organization Detai ls LastModified Time None Recorded Concern Status LastModified by Organization Details LastModified Time None Recorded Advance Directives Directive None Recorded Payers Insurance Date Sequence Insurance Name Policy Number Policy Waldron Covered Member ID Waldron Member ID Guarantor Name 07/08/2024 1 JOHN [place] ([facility]) [id number] Raffy Aragon [facility] [id number] Viktoria Aragon Notes Date Note Type Note Provider Name and Address Orgrobert linda Details Recorded Time 02/17/2022 text/html COVID-19 VISIT - cmdReported by PatientHPIFor patient presents for, patient reportscovid-19 visit. For pertinent findings, patient reports(+) body aches,(+) sore throat, and(+) coughbut reportsno fever,no nasal symptoms,no cp,no leg swelling,no neurologic deficits, andno sob. For covid vaccination status, patient reports(+) covid vaccination pfizer and has been > 2 weeks since the final scheduled doseandreceived booster moderna.27 y/o F with pmh: IBS and hidradenitis suppurativa reports she tested positive for covid on an at home test todayPt has sore throat, cough, headache, malaise and body aches since yesterdayPt is fully vaccinated for covid OTC: Ibuprofen with mild reliefTara ARIEL Romo - .[facility]02/17/2022 15:43:text/htmlCOVID-19 VISIT - cmdReported by PatientHPIFor patient presents for, patient reportscovid-19 visit. For pertinent findings, patient reports(+) nasal discharge/congestionand (+) coughbut reportsno fever,no body aches,no sore throat,no cp,no leg swelling, no neurologic deficits, andno sob((+) sinus pain (+) green mucus (+) ear pain). For covid vaccination status, patient reports(+) covid vaccination pfizer and has been > 2 weeks since the final scheduled doseandreceived booster moderna.Pt presents for RAPID testing. Pt reports she tested positive 4 days ago on a rapid and pcr test. pt is still experiencing sxs. Pt took OTC mucinex for relief. Shant Mayo [address], [place], [address], [facility] - .[facility]02/20/2022 23:03:24 OBGyn Episode No OBEpisode recorded.
--- OUTSIDE RECORDS SUMMARY | 2025-09-23 08:54 | XMS_ITS | Clinical Summary ---
Author Organization [employer] [facility] Address [address] [place] [id number] Care Team Providers Care Test Development Engineer Name Role Phone Tomeka Byrd MD Primary Care Provider [phone] Allergies No known active allergies Medications MedicationSigDispense QuantityRefillsLast FilledStart DateEnd DateStatus drospirenone-ethinyl estradiol (VESTURA, 28,) 3-0.02 mg tablet Take 1 tablet by mouth once daily. 1 Package ctive Family History Medical HistoryRelationNameCommentsArthritisMaternal GrandmotherRAArthritis Paternal GrandmotherRARelationNameStatusCommentsMaternal GrandmotherPaternal Grandmother Social History Tobacco UseTypesPacks/DayYears UsedDateSmoking Tobacco: NeverAlcohol UseStandard Drinks/WeekCommentsNo0 (1 standard drink = 0.6 oz pure alcohol)Comments UnknownSex and Gender InformationValueDate RecordedSex Assigned at BirthNot on fileLegal PbmQnjski88/14/2013 5:42 AM CSTGender IdentityNot on fileSexual OrientationNot on file Last Filed Vital Signs Vital SignReadingTime TakenCommentsBlood Zastasap079/7209/26/2014 3:07 PM CHICKEN VACCINATOR Ueluw629809/26/2014 3:07 PM DHUVfhxzpsfkfw31.4 ??C (97.5 ??F)06/09/2009 10:37 AM CDTRespiratory Rate--Oxygen Saturation--Inhaled Oxygen Concentration--Hfiaak73.3 kg (166 lb)09/26/2014 3:07 PM CSTHeight--Body Mass Index-- Plan of Treatment Health MaintenanceDue DateLast DoneCommentsTetanus gfoltoo4102/14/2008Depression screening for age 12+2009HIV for age 15-MI (ht and wt on same day) for age 18+2015Hepatitis C screening for age 18-7902/13/2015Hepatitis B series for 19+ (1 of 3 - 19+ 3-dose series)02/14/2016HPV series for age 9-45 (1 - 3-dose SCDM series)02/14/2024ap test for age 21- COVID-19 vaccine series ( - 2024- season)2025Influenza Vaccine (#1) 2025Pneumococcal series for age 6-49Aged OutNo longer eligible based on patient's age to complete this topic Procedures Procedure NamePriorityDate/TimeAssociated DiagnosisCommentsGYN THIN PREP PAP SCREEN ISCSJYQtluraa47/15/2022 8:30 AM CDT from Last 3 Months or Most Recently Relevant to Health Maintenance Results * PROVIDER NETWORK ANALYST THIN PREP PAP SCREEN IMAGED (04/25/2022 8:30 AM CDT)ComponentValueRef RangeTest MethodAnalysis TimePerformed AtPathologist SignatureCase Report Gynecologic Cytology Report ? Case: [id number] ? Authorizing Provider: ??Nicky Restrepo PA-C ?Collected: ? 04/25/2022 0830 ? Ordering Location: ? [facility] ?Received: ?04/28/2022 1312 ? First Screen: ?BacRichard melendez ? Specimen: ?PROVIDER NETWORK ANALYST ThinPrep Vial Screening, Cervical/Vaginal ? 05/12/2022 1:49 PM [facility] INTERPRETATION/RESULTNEGATIVE FOR INTRAEPITHELIAL LESION OR MALIGNANCY (NIL) (none)05/12/2022 1:49 PM [facility] at 1349 CDTSPECIMEN ADEQUACY Satisfactory for evaluation No endocervical component seen05/12/2022 1:49 PM [facility] C[facility]TRAL LABORATORYHPV REQUESTHPV if ASCUS05/12/2022 1:49 PM [facility] LABORATORYLast Pap Date05/12/2022 1:49 PM [facility]-CENTRAL LABORATORYComment:2019Last Pap RdeimrOUJ91/01/2022 1:49 PM [facility] LABORATORYAbnormal Pap or Tranquillity Bx in last 5 jjhpyXq8905/12/2022 1:49 PM [facility] Menstrual StatusHormonally Tstoevjsgn57/01/2022 1:49 PM [facility]AL LABORATORYColp Bx Done WmcicBo0605/12/2022 1:49 PM [facility]Additional Baewacsxqok21/01/2022 1:49 PM CDT [facility]-CENTRAL LABORATORYComment: Interpreted at [facility] - [address], [place] [address] Automated NqlxahVyniyjptxp99/01/2022 1:49 PM [facility]-CENTRAL LABORATORYComment:Specimen processed successfully by automated hardboard grinder device, ThinPrep Imaging System, [employer]NoteThe pap test is a screening technique, not a diagnostic procedure. It is used primarily to screen for squamous cancers and precursor lesions. Published studies have shown that it is subject to both false negative and false positive results. The pap test should not be used as the sole means to diagnose or exclude pre-malignant and malignant lesions. 05/12/2022 1:49 PM [facility]-CENTRAL LABORATORYSpecimen (Source)Anatomical Location / LateralityCollection Method / VolumeCollection TimeReceived TimeOther (Cervical/Vaginal)04/25/2022 8:30 AM CDT04/28/2022 1:12 PM CDT Narrative Authorizing ProviderResult TypeResult StatusApril Juan Restrepo PA-C PATHOLOGY/CYTOLOGYFinal ResultPerforming OrganizationAddressCity/State/ZIP Code Phone Number [facility] [address] [employer] [place] [address], from Last 3 Months or Most Recently Relevant to Health Maintenance Insurance Care Teams Team MemberRelationshipSpecialtyStart DateEnd Tomeka Byrd MD [address] [place] [address] PCP - GeneralObstetrics and Jweclbnsna68/3/14
[2025-09-23 08:55] VITALS: BP 137/90; PULSE 91; RESP 18; TEMP 36.1; O2SAT 100
--- NOTE | 2025-09-23 09:13 | ED_ITS ---
HPI - General Adult General Chief complaint: Anxiety Stated complaint: panic attack Time Seen by Provider: 09/23/25 09:13 History of Present Illness HPI narrative: Patient presents to the emergency department complaining of increased anxiety. Patient states she has had multiple panic attacks a day for the last few days. Patient at the beginning of the year stopped her SSRIs as she was feeling better and now as the year has gone on it has gotten worse and now a daily occurrence. Patient has a meeting with her psych doctor set to possibly be put back on SSRIs but is looking for something in the meantime . 30-year-old woman presenting to the emergency department with worsening anxiety. Describes numerous daily panic attacks escalating over the last few days. Actually was seen 3 days ago in urgent care and given low-dose hydroxyzine. Was suggested than to follow-up in the emergency department if needed further intervention. History of generalized anxiety. Panic attacks are familiar; notes herself to be well physically otherwise. She believes this is due to some OCD features and being hypervigilant to physical symptoms as well which tends to snowball. She describes palpitations, lightheadedness, tension, need to flee. Does not drink much alcohol. No SI or HI. Has an appointment already with her psychiatrist in early October. 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 Uncertain what might actually be triggering this flare of anxiety. Says that her life actually is quite good. She would be interested in returning to SSRIs they had been successful for her in the past. Discontinued Lexapro earlier this year. Would prefer not to go back to Lexapro due to concern of it having caused weight gain. Would appreciate some bridging medication as well. Would be interested in a trial of fluoxetine. Related Data Home Medications ?Medication ?Instructions ?Recorded ?Confirmed cholecalciferol (vitamin D3) 25 1,000 unit PO DAILY 09/23/25 mcg (1,000 unit) tablet levonorgestrel 14 mcg/24 hr (up to 13.5 intrauterine O NCE 04/25/22 05/11/23 3 yrs) 13.5 mg intrauterine device spironolactone 50 mg tablet 50 mg PO DAILY 04/07/23 Previous Rx's ?Medication ?Instructions ?Recorded hydroxyzine HCl 10 mg tablet 10 mg PO Q8H PRN anxiety #14 tabs 09/20/25 fluoxetine 10 mg capsule 10 mg PO DAILY #30 caps 09/11 01/03 lorazepam 0.5 mg tablet 0.5 mg PO TID PRN #10 tabs 1 11/24/24 propranolol 20 mg tablet 20 mg PO TID PRN #30 tabs Allergies Allergy/AdvReac Type Severity Reaction Status Date / Time No Known Drug Allergies Allergy Verified 09/23/25 09:00 Review of Systems Status of ROS: Reports: 6 or more systems reviewed and unremarkable except as noted in History and below [facility] Medical History Campylobacter diarrhea ?A04.5 - Campylobacter enteritis (ICD-10) Diarrhea ?R19.7 - Diarrhea, unspecified (ICD-10) JOVANNY (generalized anxiety disorder) ?F41.1 - Generalized anxiety disorder (ICD-10) Skin tag of anus ?K64.4 - Residual hemorrhoidal skin tags (ICD-10) Positive antinuclear antibody ?R76.8 - Other specified abnormal immunological findings in serum (ICD-10) Pityriasis rosea (10/24/21) ?L42 - Pityriasis rosea (ICD-10) Hidradenitis suppurativa ?L73.2 - Hidradenitis suppurativa (ICD-10) Attention deficit disorder of adult with hyperactivity ?F90.9 - Attention-deficit hyperactivity disorder, unspecified type (ICD-10) Anal fistula (11/2019) ?K60.3 - Anal fistula (ICD-10) Alopecia (2020) ?L65.9 - Nonscarring hair loss, unspecified (ICD-10) Allergic rhinitis ?J30.9 - Allergic rhinitis, unspecified (ICD-10) Surgical History Anal fissure and fistula ?K60.2 - Anal fissure, unspecified (ICD-10) ?K60.3 - Anal fistula (ICD-10) History of third molar tooth extraction (2013) ?K08.409 - Partial loss of teeth, unspecified cause, unspecified class (ICD- 10) History of repair of fracture of facial bone (2011) ?Z98.890 - Other specified postprocedural states (ICD-10) ?Z87.81 - Personal history of (healed) traumatic fracture (ICD-10) Family History Maternal Grandmother Rheumatoid arthritis Paternal Grandmother Rheumatoid arthritis Family/Other Melanoma Autoimmune disorder 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 Exercises 4 times a week. Denies tobacco or E cigarette use. Two alcoholic drinks per week. Denies recre ational drug use. No concerns for safety or abuse. Smoking Status: Never smoker How often do you have a drink containing alcohol: 2-3 times a week How many standard drinks containing alcohol do you have on a typical day: 1 or 2 How often do you have six or more drinks on one occasion: Never AUDIT-C Alcohol total score: 3 Non-prescribed substance use: denies use Exam Narrative: Exam Narrative: Very pleasant. NAD. Introspective. Breathing easily. Speaking fluidly. Sp eech isn't pressured nor slurred. Appropriately casually groomed. Vitals noted. Const: Vital Signs, click to edit/add: Vital Signs - 24 hr 09/23/25 08:55 Temperature 97 F L Pulse Rate [Right Pulse Oximeter] 91 Respiratory Rate 18 Blood Pressure [Ri ght Upper Arm] 137/90 H Pulse Oximetry 100 Oxygen Delivery Me thod Room Air Documenting provider has reviewed patient's vital signs: yes Course Vital Signs Vital signs: Initial Vital Signs Temperature 97 F L 09/23/25 08:55 Temperature Source Temporal Artery Scan 09/23/25 08:55 Pulse Rate 91 09/23/25 08:55 Pulse Rhythm Regular 09/23/25 08:55 Pulse Strength 3+ Normal 09/23/25 08:55 Respiratory Rate 18 09/23/25 08:55 Blood Pressure 137/90 H 09/23/25 08:55 Blood Pressure Mean 105 09/23/25 08:55 Blood Pressure Position Sitting 09/23/25 08:55 Pulse Oximetry 100 09/23/25 08:55 Oxygen Delivery Method Room Air 09/23/25 08:55 Vital Signs Temperature 97 F L 09/23/25 08:55 Pulse Rate 91 09/23/25 08:55 Respiratory Rate 18 09/23/25 08:55 Blood Pressure 137/90 H 09/23/25 08:55 Pulse Oximetry 100 09/23/25 08:55 Oxygen Delivery Method Room Air 09/23/25 08:55 Temperature 97 F L 09/23/25 08:55 Pulse Rate 91 09/23/25 08:55 Respiratory Rate 18 09/23/25 08:55 Blood Pressure 137/90 H 09/23/25 08:55 Pulse Oximetry 100 09/23/25 08:55 Oxygen Delivery Method Room Air 09/23/25 08:55 Medical Decision Making MDM Narrative Medical decision making narrative: Long history of anxiety associated symptoms. No reason to suspect otherwise a cardiac etiology. Has a reasonable plan of action. No red flags. I did discuss the given symptoms propranolol might be more effective at symptom control. She had been thinking of this as well. She is a bit apologetic for asking but was also hoping for some lorazepam as well. Has used this intermittently before and for flights. See patient discharge plan for further discussion. Please follow-up as scheduled in early October with your psychiatrist. As discussed, will be prescribing propranolol, lorazepam, fluoxetine. Per your preference begin fluoxetine daily and would consider taking propranolol dosed regularly 2 to 3 times a day over the next few days and then lorazepam for breakthrough symptoms if needed. After this next week or 10 days might be able to use propranolol then for symptom relief instead. Return as needed. Medical Records Medical records reviewed: Yes I reviewed the patient's medical records Discharge Plan Discharge Clinical Impression: JOVANNY (generalized anxiety disorder), Acute anxiety Patient Disposition: Home, Self-Care Condition: Stable Additional Instructions: Please follow-up as scheduled in october with your psychiatrist. As discussed, will be prescribing propranolol, lorazepam, fluoxetine. Per your preference begin fluoxetine daily and would consider taking propranolol dosed regularly 2 to 3 times a day over the next few days and then lorazepam for breakthrough symptoms if needed. After this next week or 10 days might be able to use propranolol then for symptom relief instead. Return as needed. Prescriptions: New lorazepam 0.5 mg tablet 0.5 mg PO TID PRNQty: 10 0RF fluoxetine 10 mg capsule 10 mg PO DAILY Qty: 30 0RF propranolol 20 mg tablet 20 mg PO TID PRNQty: 30 0RF No Action cholecalciferol (vitamin D3) 25 mcg (1,000 unit) tablet 1,000 unit PO DAILY levonorgestrel 14 mcg/24 hrs (3 yrs) 13.5 mg intrauterine device 13.5 intrauterine ONCE hydroxyzine HCl 10 mg tablet 10 mg PO Q8H PRN (Reason: anxiety) Qty: 14 0RF spironolactone 50 mg tablet 50 mg PO DAILY Follow Up/Referrals: Yuniel Barbosa MD [Primary Care Provider, Family Practice] Stand Alone Forms: [facility] Instructions
== END 2025-09-23 09:57 | disposition home or self-care (01) ==
LOC: ED 09:45
PROVIDERS: Emergency Provider Family Medicine; PCP Family Medicine
DX: F41.1 Generalized anxiety disorder (principal)
CPT/HCPCS: 99284